=== PATIENT | female | born 1960 | race Caucasian/White ===

== ENCOUNTER 2017-03-06 07:39 | Inpatient (IN) | payer OTHER ==
[~2017-03-06] VITALS: Ht 160 cm; Wt 86.6 kg
[~2017-03-06 07:39] MED LIST: BACITRACIN 50,000 UNIT ONE; BUPIVACAINE/PF-EPI 0.5% 1:200K ONE; HYDR-3240 PO; METH750T87 PO; OXYC-229 PO; THROMBIN 5,000 UNIT VIAL TP ONE
[2017-03-06] MEDS ORDERED: OXYC-229 PO (08:13)
[2017-03-06] MEDS ORDERED: LACTATED RINGERS 1,000 ML IV SCH (08:13)
[2017-03-06 08:14] VITALS: BP 133/67
[2017-03-06] MEDS ORDERED: PLEASE ENTER HEIGHT AND WEIGHT MC SCH (08:30)
[2017-03-06] MEDS ORDERED: LIDOCAINE 1%, 2ML ONE (08:33)
[2017-03-06] MEDS ORDERED: LIDOCAINE 1%, 2ML SQ PRN (09:00)
[2017-03-06] MEDS ORDERED: FENTANYL PF 250 MCG/5ML ONE ×2 (09:31→12:46)
[2017-03-06] MEDS ORDERED: MIDAZOLAM 1 MG/ML, 2ML ONE (09:31)
[2017-03-06] MEDS ORDERED: OXYcodone 5 MG/5 ML ORAL.SOL UDC PO PRN (10:00)
[2017-03-06] MEDS ORDERED: ACETAMINOPHEN 325 MG TABLET PO PRN (10:00)
[2017-03-06] MEDS ORDERED: MEPERIDINE/PF 25MG/0.5ML IVPush PRN (10:00)
[2017-03-06] MEDS ORDERED: ONDANSETRON 2MG/ML, 2ML IVPush PRN (10:00)
[2017-03-06] MEDS ORDERED: VANCOMYCIN 1,000 MG ONE (12:31)
[2017-03-06] MEDS ORDERED: DIAZEPAM 5 MG/ML, 2ML ONE (13:09)
[2017-03-06] MEDS ORDERED: HYDROmorphone 1 MG/ML, 1ML ONE (13:11)
[2017-03-06] MEDS ORDERED: OXYcodone 5 MG/5 ML ORAL.SOL UDC ONE (13:11)
[2017-03-06] MEDS ORDERED: FENTANYL PF 100 MCG/2ML ONE (13:11)
[2017-03-06] MEDS ORDERED: ACETAMINOPHEN 650 MG/20.3 ML UDC ONE (13:11)
[2017-03-06] MEDS: FENTANYL PF 100 MCG/2ML IV PRN ×2 (13:12→13:20)
[2017-03-06] MEDS: HYDROmorphone 1 MG/ML, 1ML IV PRN ×2 (13:14→13:44)
[2017-03-06 15:15] VITALS: BP 100/58
[2017-03-06] MEDS ORDERED: DIAZEPAM 5 MG TABLET PO PRN (15:30)
[2017-03-06] MEDS ORDERED: OXYcodone/APAP 5/325MG TABLET PO PRN (15:30)
[2017-03-06] MEDS ORDERED: MAGNESIUM HYDROXIDE 8%, 30ML UDC PO PRN (15:30)
[2017-03-06] MEDS ORDERED: DIAZEPAM 5 MG/ML, 2ML IV PRN (15:30)
[2017-03-06] MEDS ORDERED: DIPHENHYDRAMINE 50 MG CAPSULE PO PRN (15:30)
[2017-03-06] MEDS ORDERED: HYDROmorphone 2 MG/ML, 1ML IM PRN (15:30)
[2017-03-06] MEDS ORDERED: DIPHENHYDRAMINE 50 MG/ML, 1ML IVPush PRN (15:30)
[2017-03-06] MEDS ORDERED: DIPHENHYDRAMINE 50 MG/ML, 1ML IM PRN (15:30)
[2017-03-06] MEDS ORDERED: BISACODYL 10 MG SUPP PR PRN (15:30)
[2017-03-06] MEDS ORDERED: ONDANSETRON 2MG/ML, 2ML ONE (16:19)
[2017-03-06] MEDS ORDERED: ROCURONIUM 10 MG/ML ONE (16:19)
[2017-03-06] MEDS ORDERED: DEXAMETHASONE 4 MG/ML, 5ML ONE (16:19)
[2017-03-06] MEDS ORDERED: CEFAZOLIN 1,000 MG ONE (16:19)
[2017-03-06] MEDS ORDERED: PROPOFOL 10 MG/ML, 20ML ONE (16:19)
[2017-03-06] MEDS: CEFAZOLIN PMX 1GM/50ML 50 ML IVPB SCH (17:34)
[2017-03-06] MEDS: METHOCARBAMOL 750 MG TABLET PO PRN (17:34)
[2017-03-06] MEDS: NS + 20MEQ KCL 1,000 ML IV SCH (18:34)
[2017-03-06 20:18] VITALS: BP 105/70
[2017-03-06] MEDS: HYDROmorphone 2MG TABLET PO PRN (20:36)
[2017-03-06] MEDS ORDERED: ZOLPIDEM 5MG TABLET PO PRN (21:00)
[2017-03-07 00:15] VITALS: BP 94/58
[2017-03-07] MEDS: HYDROmorphone 2MG TABLET PO PRN ×2 (00:37→04:24)
[2017-03-07] MEDS: ONDANSETRON 2MG/ML, 2ML IV PRN ×2 (00:51→10:34)
[2017-03-07] MEDS: METHOCARBAMOL 750 MG TABLET PO PRN ×2 (01:36→20:10)
[2017-03-07] MEDS: CEFAZOLIN PMX 1GM/50ML 50 ML IVPB SCH (01:37)
[2017-03-07 03:43] VITALS: BP 96/60
[2017-03-07] MEDS: NS + 20MEQ KCL 1,000 ML IV SCH ×3 (03:48→14:55)
[2017-03-07 05:32] LABS: BLOOD UREA NITROGEN 11 mg/dL (7-18)
[2017-03-07 07:35] VITALS: BP 91/51
[2017-03-07] MEDS: SENNA/DOCUSATE TABLET PO SCH (07:37)
[2017-03-07] MEDS: OXYcodone/APAP 10/325MG TABLET PO PRN ×3 (10:36→22:51)
[2017-03-07 13:15] VITALS: BP 99/64
[2017-03-07] MEDS: PROMETHAZINE 25 MG/ML, 1ML IM PRN (14:58)
[2017-03-07 19:18] VITALS: BP 102/67
[2017-03-08 00:36] VITALS: BP 99/55
[2017-03-08] MEDS: NS + 20MEQ KCL 1,000 ML IV SCH ×3 (01:55→21:00)
[2017-03-08] MEDS: HYDROmorphone 2MG TABLET PO PRN (02:09)
[2017-03-08] MEDS: OXYcodone/APAP 10/325MG TABLET PO PRN ×5 (05:49→22:12)
[2017-03-08] MEDS: METHOCARBAMOL 750 MG TABLET PO PRN ×2 (08:30→18:22)
[2017-03-08] MEDS: SENNA/DOCUSATE TABLET PO SCH (08:30)
[2017-03-08 08:40] VITALS: BP 94/59
[2017-03-08 13:00] VITALS: BP 95/51
[2017-03-08 20:23] VITALS: BP 94/49
[2017-03-09] MEDS: OXYcodone/APAP 10/325MG TABLET PO PRN ×2 (02:20→11:05)
[2017-03-09] MEDS: METHOCARBAMOL 750 MG TABLET PO PRN (02:20)
[2017-03-09 03:06] VITALS: BP 98/46
[2017-03-09] MEDS ORDERED: ONDANSETRON ODT 4 MG ONE (09:45)
[2017-03-09] MEDS: PROMETHAZINE 25 MG/ML, 1ML IM PRN (11:05)
[2017-03-10 14:21] VITALS: BP 98/61
== END 2017-03-10 12:45 | disposition home or self-care (01) | DRG 460 ==
LOC: ORIP 07:39 → 4NOR 15:13 → DCLOUNGE 03-10 12:00 → UNDODISIN 03-10 12:45
PROVIDERS: ADMIT Neurological Surgery; ATTEND Neurological Surgery
PROC: 0SG0071 Fusion of Lumbar Vertebral Joint with Autologous Tissue Substitute, Posterior Approach, Posterior Column, Open Approach (ICD-10-PCS; 2017-03-06)
PROC: 0SB20ZZ Excision of Lumbar Vertebral Disc, Open Approach (ICD-10-PCS; 2017-03-06)
PROC: 01NB0ZZ Release Lumbar Nerve, Open Approach (ICD-10-PCS; 2017-03-06)
PROC: 0SG00AJ Fusion of Lumbar Vertebral Joint with Interbody Fusion Device, Posterior Approach, Anterior Column, Open Approach (ICD-10-PCS; principal; 2017-03-06 10:30)
DX: M48.06 Spinal stenosis, lumbar region (principal); M43.16 Spondylolisthesis, lumbar region; M54.16 Radiculopathy, lumbar region; Z87.891 Personal history of nicotine dependence
CPT/HCPCS: 36415; 72100; 80048; 85025; 86850; 86900; C1713; J0690; J1100; J1170; J2250; J2270; J2405; J2550; J2704; J3010; J3370; J3480; J3490; C1762; J7120

== ENCOUNTER → 2018-09-13 | Outpatient (CLI) | payer OTHER ==
[~2018-09-13] MED LIST changes: -BACITRACIN 50,000 UNIT ONE; -BUPIVACAINE/PF-EPI 0.5% 1:200K ONE; -OXYC-229 PO; +OXYC-307 PO; +SERT50TA PO; -THROMBIN 5,000 UNIT VIAL TP ONE
[2018-09-13 14:26] LABS: BASOPHILS # (AUTO) 0.11 x10^3/uL (0-0.1); BASOPHILS % (AUTO) 2 % (0-1); EOSINOPHILS # (AUTO) 0.04 x10^3/uL (0-0.4); EOSINOPHILS % (AUTO) 1 % (1-7); LYMPHOCYTES # (AUTO) 2.46 x10^3/uL (1-3.4); LYMPHOCYTES % (AUTO) 31 % (22-44); MD NO; MEAN CORPUSCULAR HEMOGLOBIN 28.8 pg (27.0-34.8); MEAN CORPUSCULAR HGB CONC 33.1 g/dL (32.4-35.8); MEAN CORPUSCULAR VOLUME 87.2 fL (80-100); MEAN PLATELET VOLUME 8.5 fL (7.4-10.4); MONOCYTES # (AUTO) 0.49 x10^3/uL (0.2-0.8); MONOCYTES % (AUTO) 6 % (2-9); NEUTROPHILS # (AUTO) 4.76 x10^3/uL (1.8-6.8); NEUTROPHILS % (AUTO) 60 % (42-75); PLATELET COUNT 276 x10^3/uL (130-400); RED BLOOD COUNT 5.12 x10^6/uL (3.82-5.3); RED CELL DISTRIBUTION WIDTH 14.5 % (9.6-15.2)
[2018-09-13 14:35] LABS: ANION GAP 7 mmol/L (5-15); CALCIUM 9.2 mg/dL (8.5-10.1); CHLORIDE 107 mmol/L (98-107); CREATININE 0.77 mg/dL (0.55-1.02)
[2018-09-13 14:50] LABS: INTERNATIONAL NORMALIZED RATIO 0.99 (0.93-1.1); PROTHROMBIN TIME 10.5 Seconds (9.6-11.5)
== END | disposition home or self-care (01) ==
LOC: STAR 13:17
PROVIDERS: ATTEND Neurological Surgery
DX: Z01.818 Encounter for other preprocedural examination (principal); M48.061 Spinal stenosis, lumbar region without neurogenic claudication
CPT/HCPCS: 36415; 71046; 80048; 85025; 85610; 85730; 93005

== ENCOUNTER 2018-09-22 06:42 | Inpatient (IN) | payer OTHER ==
[~2018-09-22] VITALS: Ht 160 cm; Wt 83.4 kg
[2018-09-22] MEDS ORDERED: LACTATED RINGERS 1,000 ML IV SCH (07:09)
[2018-09-22 07:13] VITALS: BP 118/79
[2018-09-22] MEDS ORDERED: VANCOMYCIN 1,000 MG ONE ×2 (07:25→11:42)
[2018-09-22] MEDS ORDERED: BUPIVACAINE/PF-EPI 0.5% 1:200K ONE (07:25)
[2018-09-22] MEDS ORDERED: BACITRACIN 50,000 UNIT ONE (07:25)
[2018-09-22] MEDS ORDERED: THROMBIN 5,000 UNIT VIAL TP ONE (07:25)
[2018-09-22] MEDS ORDERED: METHYLENE BLUE 10 MG/ML 10ML ONE (07:26)
[2018-09-22] MEDS ORDERED: MIDAZOLAM 1 MG/ML, 2ML ONE (09:07)
[2018-09-22] MEDS ORDERED: FENTANYL PF 250 MCG/5ML ONE (09:07)
[2018-09-22] MEDS ORDERED: GABAPENTIN 300 MG CAPSULE ONE (09:15)
[2018-09-22] MEDS ORDERED: ACETAMINOPHEN 500 MG TABLET ONE (09:15)
[2018-09-22] MEDS ORDERED: SCOPOLAMINE PATCH, 1.5MG PATCH.TD72 TD ONE (09:15)
[2018-09-22] MEDS ORDERED: DEXAMETHASONE 4 MG/ML, 1ML ONE (09:58)
[2018-09-22] MEDS ORDERED: PROPOFOL 10 MG/ML, 20ML ONE (09:58)
[2018-09-22] MEDS ORDERED: CEFAZOLIN 1,000 MG ONE (09:58)
[2018-09-22] MEDS ORDERED: EPHEDRINE 50 MG/ML, 1ML ONE (09:58)
[2018-09-22] MEDS ORDERED: ONDANSETRON 2MG/ML, 2ML ONE (09:58)
[2018-09-22] MEDS ORDERED: ROCURONIUM 10 MG/ML,10ML ONE (09:58)
[2018-09-22] MEDS ORDERED: ALBUTEROL SULFATE 2.5 MG/3 ML NPPB PRN ×2 (12:00→15:00)
[2018-09-22] MEDS ORDERED: PROMETHAZINE 25 MG/ML, 1ML IV PRN ×2 (12:00→15:00)
[2018-09-22] MEDS ORDERED: OXYcodone 5 MG/5 ML ORAL.SOL UDC PO PRN ×2 (12:00→15:00)
[2018-09-22] MEDS ORDERED: HALOPERIDOL 5 MG/ML IV PRN ×2 (12:00→15:00)
[2018-09-22] MEDS ORDERED: hydrALAzine 20 MG/ML, 1ML IV PRN ×2 (12:00→15:00)
[2018-09-22] MEDS ORDERED: LABETALOL 5MG/ML, 20ML IV PRN ×2 (12:00→15:00)
[2018-09-22] MEDS ORDERED: OXYcodone 5 MG/5 ML ORAL.SOL UDC ONE (13:37)
[2018-09-22] MEDS ORDERED: FENTANYL PF 100 MCG/2ML ONE (13:37)
[2018-09-22] MEDS: FENTANYL PF 100 MCG/2ML IV PRN ×2 (13:42→13:49)
[2018-09-22] MEDS ORDERED: HYDROmorphone 2 MG/ML, 1ML ONE (13:46)
[2018-09-22] MEDS: HYDROmorphone 2 MG/ML, 1ML IVPush PRN ×4 (13:47→14:11)
[2018-09-22] MEDS ORDERED: HYDROmorphone 2 MG/ML, 1ML IVPush PRN (15:00)
[2018-09-22] MEDS ORDERED: FENTANYL PF 100 MCG/2ML IV PRN (15:00)
[2018-09-22] MEDS ORDERED: DIPHENHYDRAMINE 50 MG/ML, 1ML IM PRN (16:00)
[2018-09-22] MEDS ORDERED: DIPHENHYDRAMINE 50 MG/ML, 1ML IVPush PRN (16:00)
[2018-09-22] MEDS ORDERED: HYDROcodone/APAP 5/325 TABLET PO PRN (16:00)
[2018-09-22] MEDS ORDERED: MAGNESIUM HYDROXIDE 8%, 30ML UDC PO PRN (16:00)
[2018-09-22] MEDS ORDERED: DIPHENHYDRAMINE 50 MG CAPSULE PO PRN (16:00)
[2018-09-22] MEDS ORDERED: DIAZEPAM 5 MG/ML, 2ML IV PRN (16:00)
[2018-09-22] MEDS ORDERED: HYDROmorphone 2MG TABLET PO PRN (16:00)
[2018-09-22] MEDS ORDERED: OXYcodone/APAP 5/325MG TABLET PO PRN (16:00)
[2018-09-22] MEDS ORDERED: HYDROmorphone 2 MG/ML, 1ML IM PRN (16:00)
[2018-09-22] MEDS ORDERED: BISACODYL 10 MG SUPP PR PRN (16:00)
[2018-09-22] MEDS: NS + 20MEQ KCL 1,000 ML IV SCH (17:51)
[2018-09-22] MEDS: CEFAZOLIN PMX 1GM/50ML 50 ML IVPB SCH (18:47)
[2018-09-22 20:00] VITALS: BP 103/67
[2018-09-22] MEDS: SERTRALINE 50MG TABLET PO SCH (21:10)
[2018-09-23 00:15] VITALS: BP 96/52
[2018-09-23] MEDS: CEFAZOLIN PMX 1GM/50ML 50 ML IVPB SCH (02:13)
[2018-09-23 04:11] VITALS: BP 98/60
[2018-09-23] MEDS: NS + 20MEQ KCL 1,000 ML IV SCH ×3 (05:58→18:13)
[2018-09-23 06:02] LABS: CHLORIDE 106 mmol/L (98-107)
[2018-09-23 06:21] LABS: ALBUMIN 2.8 g/dL (3.4-5.0); ANION GAP 7 mmol/L (5-15); CALCIUM 7.9 mg/dL (8.5-10.1); CREATININE 0.65 mg/dL (0.55-1.02)
[2018-09-23 07:07] VITALS: BP 87/52
[2018-09-23] MEDS: ONDANSETRON 2MG/ML, 2ML IV PRN ×2 (07:18→18:18)
[2018-09-23] MEDS: SENNA/DOCUSATE TABLET PO SCH (08:09)
[2018-09-23 12:07] VITALS: BP 91/51
[2018-09-23 19:10] VITALS: BP 91/57
[2018-09-23] MEDS: SERTRALINE 50MG TABLET PO SCH (20:48)
[2018-09-24] MEDS: ONDANSETRON 2MG/ML, 2ML IV PRN
[2018-09-24] MEDS: DIAZEPAM 5 MG TABLET PO PRN ×2 (01:00)
[2018-09-24 03:25] VITALS: BP 95/58
[2018-09-24] MEDS: PROMETHAZINE 25 MG/ML, 1ML IM PRN ×2 (04:39→09:02)
[2018-09-24 05:49] LABS: ANION GAP 6 mmol/L (5-15); CALCIUM 7.7 mg/dL (8.5-10.1); CHLORIDE 104 mmol/L (98-107)
[2018-09-24] MEDS: NS + 20MEQ KCL 1,000 ML IV SCH (06:23)
[2018-09-24 07:52] VITALS: BP 92/53
[2018-09-24] MEDS: SENNA/DOCUSATE TABLET PO SCH (09:36)
[2018-09-24] MEDS ORDERED: METH750T87 PO (10:17)
[2018-09-24] MEDS ORDERED: ONDA4TAB7 PO ×2 (10:18→10:20)
== END 2018-09-24 11:59 | disposition home or self-care (01) | DRG 455 ==
LOC: OUT 06:42 → 4NOR 15:07 → OUT 22:43 → 4NOR 22:44
PROVIDERS: ADMIT Neurological Surgery; ATTEND Neurological Surgery
PROC: 0SG0071 Fusion of Lumbar Vertebral Joint with Autologous Tissue Substitute, Posterior Approach, Posterior Column, Open Approach (ICD-10-PCS; 2018-09-22)
PROC: 0QB33ZZ Excision of Left Pelvic Bone, Percutaneous Approach (ICD-10-PCS; 2018-09-22)
PROC: 0SB20ZZ Excision of Lumbar Vertebral Disc, Open Approach (ICD-10-PCS; 2018-09-22)
PROC: 0SP004Z Removal of Internal Fixation Device from Lumbar Vertebral Joint, Open Approach (ICD-10-PCS; 2018-09-22)
PROC: 0JU737Z Supplement of Back Subcutaneous Tissue and Fascia with Autologous Tissue Substitute, Percutaneous Approach (ICD-10-PCS; 2018-09-22)
PROC: 0JB80ZZ Excision of Abdomen Subcutaneous Tissue and Fascia, Open Approach (ICD-10-PCS; 2018-09-22)
PROC: 0SG00AJ Fusion of Lumbar Vertebral Joint with Interbody Fusion Device, Posterior Approach, Anterior Column, Open Approach (ICD-10-PCS; principal; 2018-09-22 09:30)
DX: M48.061 Spinal stenosis, lumbar region without neurogenic claudication (principal); M54.16 Radiculopathy, lumbar region; Z98.1 Arthrodesis status; L72.3 Sebaceous cyst
CPT/HCPCS: 36415; 72100; 80048; 82040; 88304; 88307; C1713; G0378; J0690; J1100; J1170; J2250; J2270; J2405; J2550; J2704; J3010; J3370; J3480; C1762; J7120; Q9968